=== PATIENT | male | born 1950 | race Caucasian/White ===

== ENCOUNTER 2016-12-08 08:49 | Emergency (ER) | payer OTHER ==
--- NOTE | 2016-12-08 10:35 | ED ORDER SUMMARY ---
..... Patient: LAUREEN OSEI [facility]Sheet [facility] VisitID: [id number] [address] [place] [address] 66y, M Registration Date/Time: 12/08/2016 ORDER SHEET Weight: 72.5 kg (stated) Allergies: No Known Drug Allergy GENERAL ORDERS: Culture, Strep Screen Urgent (09:46 12/08/2016 Nano HARVEY) (9:47 [facility]) MEDICATION ORDERS: IV FLUIDS: ORDER SHEET NOTES: [Electronically signed by Taiwo Roe R.N. (10:48 12/08/2016)] [Electronically signed by Filomena Gandhi MD (21:15 12/18/2016)] [Electronically locked/signed by Taiwo Roe R.N. (10:48 12/08/2016)]
--- NOTE | 2016-12-08 10:35 | ED CLINICAL REPORT ---
Clinical Report - Physicians/Mid Levels [facility] [address] [place] [address] 12/08/2016 8:51 Patient: LAUREEN OSEI Time Seen: 09:22. Arrived- By private vehicle. Historian- patient. HISTORY OF PRESENT ILLNESS Chief Complaint: SORE THROAT. This started yesterday and is still present. Pain described as moderate. The patient has had a sore throat. No mouth sores, nasal discharge or congestion or ear pain. No swollen jaw or face, jaw pain or facial pain. He has had moderate toothache involving a single tooth (right lower molar) (for several weeks). Similar symptoms previously: Recent medical care: ( Pt has a dental appt scheduled.). Not recently seen/assessed. REVIEW OF SYSTEMS No fever, eye discomfort, cough, difficulty breathing or chest pain. No nausea, diarrhea, abdominal pain, difficulty with urination or headache. No fainting episodes, joint pain, skin rash, enlarged lymph nodes or vomiting. All systems otherwise negative, except as recorded above. PAST HISTORY Problems: Dental Caries. Abscess. Hypertension. Immunizations. Additional Surgeries: no known surgeries. Medications: None. Allergies: No Known Drug Allergy. SOCIAL HISTORY Smoker- current status unknown. No alcohol use or drug use. ADDITIONAL NOTES The nursing notes have been reviewed. PHYSICAL EXAM Vital Signs: 12/08/2016 08:57 BP: 158/73. HR: 94. RR: 18. O2 saturation: 97%. Temp: 98.3 F. Have been reviewed. Appearance: Alert. No acute distress. Head: Normal external inspection. Eyes: Pupils equal, round and reactive to light. Conjunctivae and eyelids normal. ENT: Severe, localized dental decay (lower right incisors, lower left incisors, lower right canine, lower left canine, lower right premolars, lower left premolars). Nose normal. Mild generalized pharyngeal erythema. No right tonsillar exudate, right tonsillar swelling, left tonsillar exudate or left tonsillar swelling. Lips normal. Gums normal. No trismus present. Uvula midline. Neck: Normal inspection. Trachea midline. No adenopathy. CVS: Normal heart rate and rhythm. Heart sounds normal. Pulses normal. Respiratory: No respiratory distress. Breath sounds normal. Abdomen: Soft and nontender. Skin: Normal skin color. No rash. Normal skin turgor. Extremities: Extremities exhibit normal ROM. Extremities nontender. Neuro: Oriented X 3. No motor deficit. No sensory deficit. LABS, X-RAYS, AND EKG Laboratory Tests: Culture, Strep Screen: (CAMRYN: 12/08/2016 09:40) ( MsgRcvd 12/08/2016 10:09) Final results Test Result Flag Units (Reference) RAPID STREP SCREEN - THROAT DATE: 12/08/16 NEGATIVE SCREEN: RAPID STREP SCREEN NEGATIVE; CONFIRMATION TO FOLLOW . Pulse Oximetry: 12/08/2016 08:57 O2 saturation: 97%. (FIO2 - room air). Interpretation: normal. PROGRESS AND PROCEDURES Course of Care: D/w pt that he should keep his dental appt. Pharyngitis is likely viral. Patient counseled in person regarding the patient's stable condition, test results, diagnosis and need for follow-up. Concerns were addressed. Old medical records reviewed. Disposition: Discharged. Condition: stable. CLINICAL IMPRESSION Acute viral pharyngitis Dental caries (extensive decay) Dermatitis, nonspecific, lower extremities. INSTRUCTIONS Drink plenty of fluids. (Your strep test is negative.). Warnings: GENERAL WARNINGS: Return or contact your physician immediately if your condition worsens or changes unexpectedly, if not improving as expected, or if other problems arise. Follow-up: Follow up with a dentist. Call for the next available appointment. Follow up with a specialist [phone] Dermatology/[place]. Call for the next available appointment. Reason for referral: Chronic dermatitis on legs. Understanding of the discharge instructions verbalized by patient. (Electronically signed by Filomena Gandhi MD 12/18/2016 21:15) Tracey LAUREEN Medeiros VisitID: [id number] Date: 12/08/2016 12/10/2016 18:00 call placed to [phone] and message left; re: throat culture; needs Amoxicillin 500 mg 1 po tid, x10 days per Milka Gonzalez ENP (Electronically signed by Madeleine Rico R.N. - 12/10/2016 18:00) 12/11/2016 9:22 Left message at [phone], left message, told to call back ER to call in RX to pharmacy of choice. Will have admin send certified letter as this is pts second call. (Electronically signed by Scott Leon R.N. - 12/11/2016 9:22) 12/11/2016 17:31 Certified letter [id number] sent to patient (Electronically signed by Deneen Leon R.N. - 12/11/2016 17:31) 12/14/2016 14:26 Pt calling and states he received certified letter. This RN educated pt on positive group A Strep culture and need for amoxicillin. Pt states he wants medications filled at [facility] pharmacy. Pt states he does not have a phone number to provide that he can be reached at but will fill meds at [facility] pharmacy. [facility] contacted, pharmacy closed saturdays, Spoke with Dr Salena Rolon who wrote an electronic script for amoxicillin and sent it to [facility] pharmacy. (Electronically signed by Yanira Delarosa R.N. - 12/14/2016 14:26)
--- NOTE | 2016-12-08 10:35 | ED NURSING NOTES ---
Clinical Report - Nurses [facility] [address] [place] [address] 12/08/2016 8:51 Patient: LAUREEN OSEI TRIAGE Triage time 08:57 Dec 08 2016. Acuity: LEVEL 4. Chief Complaint: SORE THROAT. JULIA COMA SCORE: [place] Coma Scale: 15- eyes open spontaneously (4); best verbal response- oriented x 4 (5); best motor response- obeys commands (6). --09:00 Taiwo Roe R.N. 08:57 12/08/16. BP: 158/73. HR: 94. RR: 18. O2 saturation: 97%. Temp: 98.3 F. Pain level now 4/10. --09:00 Taiwo Roe R.N. Weight: 72.5 kg stated. Height/Length: 69 inches Per Patient. BMI: 23.6. --08:57 Taiwo Roe R.N. Medications None. --08:58 Taiwo Roe R.N. Allergies No Known Drug Allergy. --08:58 Taiwo Roe R.N. History Arrived by private vehicle. Historian: patient. This started yesterday. He has no dental appointment scheduled. He has had a toothache. PAST MEDICAL HX: Dental caries. Abscess. Immunizations: status is unknown. SOCIAL HX: Current every day light tobacco smoker (cigarette)- less than 1/2 a pack per day. No alcohol use or drug use. SELF HARM ASSESSMENT: A self harm assessment was performed. The patient answered "no" to the question "Have you recently felt down, depressed, or hopeless?" and "Do you have thoughts of harming or killing yourself?". FALL RISK ASSESSMENT: Fall risk assessment completed. No fall risk identified. NUTRITIONAL RISK ASSESSMENT: The nutritional risk assessment revealed no deficiencies. FUNCTIONAL ASSESSMENT: Functional assessment: no impairments noted. LEARNING NEEDS ASSESSMENT: The learning needs assessment revealed no barriers. ABUSE ASSESSMENT: Abuse assessment: (yes) The patient was asked "Do you feel safe in your home?". SKIN INTEGRITY ASSESSMENT: Skin integrity risk assessment completed. No skin integrity risk identified. --09:00 Taiwo Roe R.N. PROBLEMS: Hypertension. Immunizations. --08:58 Taiwo Roe R.N. ADDITIONAL SURGERIES: no known surgeries. Interventions ID band on patient. --09:00 Taiwo Roe R.N. PHYSICAL ASSESSMENT Ambulatory to room. GENERAL / NEURO / PSYCH: Alert. Oriented X 4. Appears in no acute distress. HEENT: Runny nose. ( sore throat states hurts to swallow). Dental decay. Mucous membranes are pink. RESPIRATORY: Respirations not labored. CVS: Capillary refill less than 2 seconds. SKIN: Skin is warm and dry. Normal skin turgor. --09:01 Tiawo Roe R.N. NURSING PROGRESS NOTES The initial plan of care for this patient includes an assessment with efforts to address patient positioning and appropriate ambient lighting. Pulse oximeter and NIBP monitor placed on patient. Reassurance given. Call light placed in reach. Side rails up x 1. Bed placed in lowest position. Brakes of bed on. --09:01 Taiwo Roe R.N. DISPOSITION / DISCHARGE Departure time: 10:42 Dec 08 2016. Condition at departure: improved. No learning barriers present. Discharge instructions provided and reviewed with the patient. Reviewed warnings. Reviewed medication(s). Treatments reviewed. Reviewed referrals. Patient verbalized understanding. Written instructions provided in Surinamese. The patient was discharged home. He left the Emergency Department ambulatory and via private vehicle. Patient driving. --10:47 Taiwo Roe R.N. 10:46 12/08/16. BP: 148/78. HR: 88. RR: 18. O2 saturation: 98%. Temp: 98.3 F. Pain level now 07/12. --10:47 Taiwo Roe R.N. Locked/Released at 12/08/2016 10:48 by Taiwo Roe R.N.
--- NOTE | 2016-12-08 10:35 | ED CLINICAL REPORT ---
Clinical Report - Physicians/Mid Levels [facility] [address] [place] [address] 12/08/2016 8:51 Patient: LAUREEN OSEI Time Seen: 09:22. Arrived- By private vehicle. Historian- patient. HISTORY OF PRESENT ILLNESS Chief Complaint: SORE THROAT. This started yesterday and is still present. Pain described as moderate. The patient has had a sore throat. No mouth sores, nasal discharge or congestion or ear pain. No swollen jaw or face, jaw pain or facial pain. He has had moderate toothache involving a single tooth (right lower molar) (for several weeks). Similar symptoms previously: Recent medical care: ( Pt has a dental appt scheduled.). Not recently seen/assessed. REVIEW OF SYSTEMS No fever, eye discomfort, cough, difficulty breathing or chest pain. No nausea, diarrhea, abdominal pain, difficulty with urination or headache. No fainting episodes, joint pain, skin rash, enlarged lymph nodes or vomiting. All systems otherwise negative, except as recorded above. PAST HISTORY Problems: Dental Caries. Abscess. Hypertension. Immunizations. Additional Surgeries: no known surgeries. Medications: None. Allergies: No Known Drug Allergy. SOCIAL HISTORY Smoker- current status unknown. No alcohol use or drug use. ADDITIONAL NOTES The nursing notes have been reviewed. PHYSICAL EXAM Vital Signs: 12/08/2016 08:57 BP: 158/73. HR: 94. RR: 18. O2 saturation: 97%. Temp: 98.3 F. Have been reviewed. Appearance: Alert. No acute distress. Head: Normal external inspection. Eyes: Pupils equal, round and reactive to light. Conjunctivae and eyelids normal. ENT: Severe, localized dental decay (lower right incisors, lower left incisors, lower right canine, lower left canine, lower right premolars, lower left premolars). Nose normal. Mild generalized pharyngeal erythema. No right tonsillar exudate, right tonsillar swelling, left tonsillar exudate or left tonsillar swelling. Lips normal. Gums normal. No trismus present. Uvula midline. Neck: Normal inspection. Trachea midline. No adenopathy. CVS: Normal heart rate and rhythm. Heart sounds normal. Pulses normal. Respiratory: No respiratory distress. Breath sounds normal. Abdomen: Soft and nontender. Skin: Normal skin color. No rash. Normal skin turgor. Extremities: Extremities exhibit normal ROM. Extremities nontender. Neuro: Oriented X 3. No motor deficit. No sensory deficit. LABS, X-RAYS, AND EKG Laboratory Tests: Culture, Strep Screen: (CAMRYN: 12/08/2016 09:40) ( MsgRcvd 12/08/2016 10:09) Final results Test Result Flag Units (Reference) RAPID STREP SCREEN - THROAT DATE: 12/08/16 NEGATIVE SCREEN: RAPID STREP SCREEN NEGATIVE; CONFIRMATION TO FOLLOW . Pulse Oximetry: 12/08/2016 08:57 O2 saturation: 97%. (FIO2 - room air). Interpretation: normal. PROGRESS AND PROCEDURES Course of Care: D/w pt that he should keep his dental appt. Pharyngitis is likely viral. Patient counseled in person regarding the patient's stable condition, test results, diagnosis and need for follow-up. Concerns were addressed. Old medical records reviewed. Disposition: Discharged. Condition: stable. CLINICAL IMPRESSION Acute viral pharyngitis Dental caries (extensive decay) Dermatitis, nonspecific, lower extremities. INSTRUCTIONS Drink plenty of fluids. (Your strep test is negative.). Warnings: GENERAL WARNINGS: Return or contact your physician immediately if your condition worsens or changes unexpectedly, if not improving as expected, or if other problems arise. Follow-up: Follow up with a dentist. Call for the next available appointment. Follow up with a specialist [phone] Dermatology/[place]. Call for the next available appointment. Reason for referral: Chronic dermatitis on legs. Understanding of the discharge instructions verbalized by patient. (Electronically signed by Filomena Gandhi MD 12/18/2016 21:15) Tracey LAUREEN Medeiros VisitID: [id number] Date: 12/08/2016 12/10/2016 18:00 call placed to [phone] and message left; re: throat culture; needs Amoxicillin 500 mg 1 po tid, x10 days per Milka Gonzalez ENP (Electronically signed by Madeleine Rico R.N. - 12/10/2016 18:00) 12/11/2016 9:22 Left message at [phone], left message, told to call back ER to call in RX to pharmacy of choice. Will have admin send certified letter as this is pts second call. (Electronically signed by Scott Leon R.N. - 12/11/2016 9:22) 12/11/2016 17:31 Certified letter [id number] sent to patient (Electronically signed by Deneen Leon R.N. - 12/11/2016 17:31) 12/14/2016 14:26 Pt calling and states he received certified letter. This RN educated pt on positive group A Strep culture and need for amoxicillin. Pt states he wants medications filled at [facility] pharmacy. Pt states he does not have a phone number to provide that he can be reached at but will fill meds at [facility] pharmacy. [facility] contacted, pharmacy closed saturdays, Spoke with Dr Salena Rolon who wrote an electronic script for amoxicillin and sent it to [facility] pharmacy. (Electronically signed by Yanira Delarosa R.N. - 12/14/2016 14:26)
--- NOTE | 2016-12-08 10:35 | ED ORDER SUMMARY ---
..... Patient: LAUREEN OSEI OrderSheet VisitID: [id number] [address] [place] [address] 66y, M Registration Date/Time: 12/08/2016 ORDER SHEET Weight: 72.5 kg (stated) Allergies: No Known Drug Allergy GENERAL ORDERS: Culture, Strep Screen Urgent (09:46 12/08/2016 Nano HARVEY) (9:47 [facility]) MEDICATION ORDERS: IV FLUIDS: ORDER SHEET NOTES: [Electronically signed by Taiwo Roe R.N. (10:48 12/08/2016)] [Electronically signed by Filomena Gandhi MD (21:15 12/18/2016)] [Electronically locked/signed by Taiwo Roe R.N. (10:48 12/08/2016)]
--- NOTE | 2016-12-18 21:15 | ED DISCHARGE INSTRUCTIONS ---
Patient: LAUREEN OSEI General Instructions [facility] VisitID: [id number] [place] [address] 66y, M Registration Date/Time: 12/08/2016 Acute viral pharyngitis Dental caries (extensive decay) Dermatitis, nonspecific, lower extremities. INSTRUCTIONS Drink plenty of fluids. (Your strep test is negative.). Warnings: GENERAL WARNINGS: Return or contact your physician immediately if your condition worsens or changes unexpectedly, if not improving as expected, or if other problems arise. Follow-up: Follow up with a dentist. Call for the next available appointment. Follow up with a specialist [phone] Dermatology/[place]. Call for the next available appointment. Reason for referral: Chronic dermatitis on legs. Understanding of the discharge instructions verbalized by patient. ADDITIONAL INFORMATION Viral Pharyngitis (Sore Throat) Your throat pain is due to an infection called "Viral Pharyngitis", commonly known as "Sore Throat". This is a contagious illness. It is spread through the air by coughing, kissing or by touching others after touching your mouth or nose. Symptoms include throat pain worse with swallowing, aching all over, headache and fever. Unlike strep throat, which is a bacterial infection, this illness does not require treatment with an antibiotic. Home Care: If your symptoms are severe, rest at home for the first 2-3 days. Children: Use acetaminophen (Tylenol) for fever, fussiness or discomfort. In infants over six months of age, you may use ibuprofen (Children's Motrin) instead of Tylenol. [NOTE: If your child has chronic liver or kidney disease or ever had a stomach ulcer or GI bleeding, talk with your maurice doctor before using these medicines.] (Aspirin should never be used in anyone under 18 years of age who is ill with a fever. It may cause severe liver damage.) Adults: You may use acetaminophen (Tylenol) or ibuprofen (Motrin, Advil) to control pain or fever, unless another medicine was prescribed. [NOTE: If you have chronic liver or kidney disease or ever had a stomach ulcer or GI bleeding, talk with your doctor before using these medicines.] Throat lozenges or sprays (Chloraseptic and others) will reduce pain. Gargling with warm salt water will also reduce throat pain. Dissolve 1/2 teaspoon of salt in 1 glass of warm water. This is especially useful just before meals. Follow Up with your doctor or as directed by our staff if you are not improving over the next week. Get Prompt Medical Attention if any of the following occur: Fever over 100.5F (38.0C) oral, or over 101.5F (38.6C) rectal for more than three days New or worsening ear pain, sinus pain or headache Painful lumps in the back of your neck Unable to swallow liquids or open your mouth wide due to throat pain Trouble breathing or noisy breathing Muffled voice New rash Dental Cavity A dental cavity is a pit or crater in the enamel surface of the tooth. This exposes the sensitive inner layer of the tooth and causes pain. If untreated, the cavity will get bigger and may cause an infection or abscess in the root of the tooth. An infection in the tooth is a much more serious problem and may require a root canal or removal of the entire tooth. The tooth pain may be made worse by drinking hot or cold fluids. It may spread from the tooth to the ear or jaw on the same side. Home Care: Avoid hot and cold foods, and liquids since your tooth may be sensitive to temperature changes. If your tooth is chipped or cracked, or if there is a large open cavity, apply OIL OF CLOVES (available [id number] in drug stores) directly to the tooth to reduce pain. Some pharmacies carry an mpde-lhb-obquqqz "toothache kit." This contains oil of cloves and a paste, which can be applied over the exposed tooth to decrease sensitivity. An ice pack on your jaw over the sore area may help to reduce pain. You may use acetaminophen (Tylenol) or ibuprofen (Motrin, Advil) to control pain, unless another pain medicine was prescribed. [ NOTE: If you have liver disease or ever had a stomach ulcer, talk with your doctor before using these medicines.] If you have signs of an infection, an antibiotic will be given. Take it as directed. Follow-Up with your dentist as directed. Although your pain may go away with the treatment given, only a dentist can fully evaluate and treat this problem to prevent further tooth damage. Get Prompt Medical Attention if any of the following occur: Redness or swelling of the face Pain worsens or spreads to the neck Fever over 100.5 F (38C) Unusual drowsiness; headache or stiff neck; weakness or fainting Pus drains from the tooth or gum Difficulty swallowing or breathing You have been given the following additional information: Pharyngitis, Viral Dental Cavity (Electronically signed by Filomena Gandhi MD 12/18/2016 21:15)
--- NOTE | 2016-12-18 21:15 | ED MAR SUMMARY ---
..... Medication Administration Record [facility] [address] [place], [place] [id number] Patient: LAUREEN OSEI Visit ID: [id number] 66y, M Weight: 72.5 kg Height/Length: 69 in BMI: 23.6 ALLERGIES: No Known Drug Allergy
--- NOTE | 2016-12-18 21:15 | ED MAR SUMMARY ---
..... Medication Administration Record [facility] [address] [place] [place], [place] [id number] Patient: LAUREEN OSEI Visit ID: [id number] 66y, M Weight: 72.5 kg Height/Length: 69 in BMI: 23.6 ALLERGIES: No Known Drug Allergy
--- NOTE | 2016-12-18 21:15 | ED MED RECONCILIATION SUMMARY ---
Patient: LAUREEN OSEI Medication Reconciliation Report [facility] VisitID: [id number] [address] [place] [address] 66y, M Registration Date/Time: 12/08/2016 Weight: 72.5 kg Height/Length: 69 in. BMI: 23.6 ALLERGIES: No Known Drug Allergy The patient's Home Medications are listed below: NONE. The source(s) of the original Home Medication information: Not obtained. The following Medications were given to the patient in the Emergency Department: None. The following Medications were prescribed to the patient: None.
--- NOTE | 2016-12-18 21:15 | ED MED RECONCILIATION SUMMARY ---
Patient: LAUREEN OSEI Medication Reconciliation Report [facility] VisitID: [id number] [address] [place] [address] 66y, M Registration Date/Time: 12/08/2016 Weight: 72.5 kg Height/Length: 69 in. BMI: 23.6 ALLERGIES: No Known Drug Allergy The patient's Home Medications are listed below: NONE. The source(s) of the original Home Medication information: Not obtained. The following Medications were given to the patient in the Emergency Department: None. The following Medications were prescribed to the patient: None.
--- NOTE | 2016-12-18 21:15 | ED DISCHARGE INSTRUCTIONS ---
Patient: LAUREEN OSEI General Instructions [facility] VisitID: [id number] [place] [address] 66y, M Registration Date/Time: 12/08/2016 Acute viral pharyngitis Dental caries (extensive decay) Dermatitis, nonspecific, lower extremities. INSTRUCTIONS Drink plenty of fluids. (Your strep test is negative.). Warnings: GENERAL WARNINGS: Return or contact your physician immediately if your condition worsens or changes unexpectedly, if not improving as expected, or if other problems arise. Follow-up: Follow up with a dentist. Call for the next available appointment. Follow up with a specialist [phone] Dermatology/Jack. Call for the next available appointment. Reason for referral: Chronic dermatitis on legs. Understanding of the discharge instructions verbalized by patient. ADDITIONAL INFORMATION Viral Pharyngitis (Sore Throat) Your throat pain is due to an infection called "Viral Pharyngitis", commonly known as "Sore Throat". This is a contagious illness. It is spread through the air by coughing, kissing or by touching others after touching your mouth or nose. Symptoms include throat pain worse with swallowing, aching all over, headache and fever. Unlike strep throat, which is a bacterial infection, this illness does not require treatment with an antibiotic. Home Care: If your symptoms are severe, rest at home for the first 2-3 days. Children: Use acetaminophen (Tylenol) for fever, fussiness or discomfort. In infants over six months of age, you may use ibuprofen (Children's Motrin) instead of Tylenol. [NOTE: If your child has chronic liver or kidney disease or ever had a stomach ulcer or GI bleeding, talk with your maurice doctor before using these medicines.] (Aspirin should never be used in anyone under 18 years of age who is ill with a fever. It may cause severe liver damage.) Adults: You may use acetaminophen (Tylenol) or ibuprofen (Motrin, Advil) to control pain or fever, unless another medicine was prescribed. [NOTE: If you have chronic liver or kidney disease or ever had a stomach ulcer or GI bleeding, talk with your doctor before using these medicines.] Throat lozenges or sprays (Chloraseptic and others) will reduce pain. Gargling with warm salt water will also reduce throat pain. Dissolve 1/2 teaspoon of salt in 1 glass of warm water. This is especially useful just before meals. Follow Up with your doctor or as directed by our staff if you are not improving over the next week. Get Prompt Medical Attention if any of the following occur: Fever over 100.5F (38.0C) oral, or over 101.5F (38.6C) rectal for more than three days New or worsening ear pain, sinus pain or headache Painful lumps in the back of your neck Unable to swallow liquids or open your mouth wide due to throat pain Trouble breathing or noisy breathing Muffled voice New rash Dental Cavity A dental cavity is a pit or crater in the enamel surface of the tooth. This exposes the sensitive inner layer of the tooth and causes pain. If untreated, the cavity will get bigger and may cause an infection or abscess in the root of the tooth. An infection in the tooth is a much more serious problem and may require a root canal or removal of the entire tooth. The tooth pain may be made worse by drinking hot or cold fluids. It may spread from the tooth to the ear or jaw on the same side. Home Care: Avoid hot and cold foods, and liquids since your tooth may be sensitive to temperature changes. If your tooth is chipped or cracked, or if there is a large open cavity, apply OIL OF CLOVES (available [id number] in drug stores) directly to the tooth to reduce pain. Some pharmacies carry an [id number] "toothache kit." This contains oil of cloves and a paste, which can be applied over the exposed tooth to decrease sensitivity. An ice pack on your jaw over the sore area may help to reduce pain. You may use acetaminophen (Tylenol) or ibuprofen (Motrin, Advil) to control pain, unless another pain medicine was prescribed. [ NOTE: If you have liver disease or ever had a stomach ulcer, talk with your doctor before using these medicines.] If you have signs of an infection, an antibiotic will be given. Take it as directed. Follow-Up with your dentist as directed. Although your pain may go away with the treatment given, only a dentist can fully evaluate and treat this problem to prevent further tooth damage. Get Prompt Medical Attention if any of the following occur: Redness or swelling of the face Pain worsens or spreads to the neck Fever over 100.5 F (38C) Unusual drowsiness; headache or stiff neck; weakness or fainting Pus drains from the tooth or gum Difficulty swallowing or breathing You have been given the following additional information: Pharyngitis, Viral Dental Cavity (Electronically signed by Filomena Gandhi MD 12/18/2016 21:15)
== END 2016-12-08 10:42 | disposition home or self-care (01) ==
LOC: ED SRH 08:49
DX: J02.9 Acute pharyngitis, unspecified (principal); K02.9 Dental caries, unspecified; L30.9 Dermatitis, unspecified; I10 Essential (primary) hypertension
CPT/HCPCS: 90154; 90159; 90627

== ENCOUNTER 2016-12-11 22:56 | Emergency (ER) | payer OTHER ==
--- NOTE | 2016-12-12 01:40 | ED NURSING NOTES ---
Clinical Report - Nurses [facility] [address] [place] [address] 12/11/2016 22:59 [id number] TRI[facility] Triage time 23:44. Chief Complaint: SWELLING (swelling, redness, drainage and leg pain in right lower extremity.). Alert. NUSRAT COMA SCORE: [place] Coma Scale: 15- eyes open spontaneously (4); best verbal response- oriented x 4 (5); best motor response- obeys commands (6). --23:51 Dread Quan R.N. 23:44 12/11/16. BP: 177/95. HR: 97. RR: 16. O2 saturation: 98%. Temp: 98.6 F. --:51 Dread Quan R.N. Weight: 70.3 kg stated. Height/Length: 69 inches Per Patient. BMI: 22.9. --: Joan Bowie R.N. Medications None. --: Joan Bowie R.N. Allergies No Known Drug Allergy. --: Joan Bowie R.N. History Arrived by private vehicle. Historian: patient. Onset. (6 days ago). Treatment INSPECTOR WEIGHTS AND MEASURES: (soaked with dish soap and water). SOCIAL HX: Light tobacco smoker- less than 1/2 a pack per day. FALL RISK ASSESSMENT: Fall risk assessment completed. No fall risk identified. NUTRITIONAL RISK ASSESSMENT: The nutritional risk assessment revealed no deficiencies. FUNCTIONAL ASSESSMENT: Functional assessment: no impairments noted. LEARNING NEEDS ASSESSMENT: The learning needs assessment revealed no barriers. SKIN INTEGRITY ASSESSMENT: Skin breakdown noted on the right calf. --23:51 Dread Quan R.N. PAST MEDICAL HX: Immunizations: has received tetanus within 10 years. --:30 Joan Bowie R.N. PROBLEMS: Abscess. Hypertension. --: Joan Bowie R.N. ADDITIONAL SURGERIES: no known surgeries. Interventions ID band on patient. To waiting room. --23:51 Dread Quan R.N. PHYSICAL ASSESSMENT Ambulatory to room. ( pt presents with red, open wounds on backs of both lower legs). GENERAL / NEURO / PSYCH: Alert. Oriented X 4. Appears in no acute distress. HEENT: Mucous membranes are pink. RESPIRATORY: Respirations not labored. CVS: Capillary refill less than 2 seconds. SKIN: Skin is warm and dry. --01:31 Joan Bowie R.N. NURSING PROGRESS NOTES Two patient identifiers checked. Call light placed in reach. Side rails up x 1. Bed placed in lowest position. Brakes of bed on. --01:31 Joan Bowie R.N. Patient ready for evaluation- chart flagged. --01:31 Joan Bowie R.N. 01:31 12/12/16. BP: 177/87. HR: 95. RR: 15 (regular and unlabored). O2 saturation: 99% on room air. Temp: 97.8 F (oral). Driscoll-Lucio pain scale: 07/12. --01:33 Joan Bowie R.N. 01:38 12/12/2016 Clindamycin PO Capsules 300 mg given. Allergies verified and confirmed 5 rights. --01:42 Joan Bowie R.N. 01:40 12/12/2016 TDAP IM 0.5 mL given. (Lot#: [id number], expiration date: 11/05/2018, Ingredient Scaler: sanofi pasteur). Given in the right deltoid. Allergies verified and confirmed 5 rights. Vaccine information statement provided to the patient. --01:42 Joan Bowie R.N. DISPOSITION / DISCHARGE 01:46 12/12/16. BP: deferred. HR: deferred. RR: 15 (regular and unlabored). O2 saturation: deferred. Temp: deferred. Driscoll-Lucio pain scale: 07/12. --01:47 Joan Bowie R.N. Condition at departure: stable. No learning barriers present. Discharge instructions provided and reviewed with the patient. Reviewed medication(s) side effects, precautions, dosing and course information. Prescription(s) given to the patient. Patient verbalized understanding. Written instructions provided in Tristanian. The patient was discharged home. He left the Emergency Department ambulatory and via private vehicle. --01:47 Joan Bowie R.N. Locked/Released at 12/12/2016 1:47 by Joan Bowie R.N.
--- NOTE | 2016-12-12 01:40 | ED NURSING NOTES ---
Clinical Report - Nurses [facility] [address] [place] [address] 12/11/2016 22:59 [id number] Triage time 23:44. Chief Complaint: SWELLING (swelling, redness, drainage and leg pain in right lower extremity.). Alert. NUSRAT COMA SCORE: [place] Coma Scale: 15- eyes open spontaneously (4); best verbal response- oriented x 4 (5); best motor response- obeys commands (6). --23:51 Dread Quan R.N. 23:44 12/11/16. BP: 177/95. HR: 97. RR: 16. O2 saturation: 98%. Temp: 98.6 F. --:51 Dread Quan R.N. Weight: 70.3 kg stated. Height/Length: 69 inches Per Patient. BMI: 22.9. --: Joan Bowie R.N. Medications None. --: Joan Bowie R.N. Allergies No Known Drug Allergy. --: Joan Bowie R.N. History Arrived by private vehicle. Historian: patient. Onset. (6 days ago). Treatment INVENTORY SPECIALIST: (soaked with dish soap and water). SOCIAL HX: Light tobacco smoker- less than 1/2 a pack per day. FALL RISK ASSESSMENT: Fall risk assessment completed. No fall risk identified. NUTRITIONAL RISK ASSESSMENT: The nutritional risk assessment revealed no deficiencies. FUNCTIONAL ASSESSMENT: Functional assessment: no impairments noted. LEARNING NEEDS ASSESSMENT: The learning needs assessment revealed no barriers. SKIN INTEGRITY ASSESSMENT: Skin breakdown noted on the right calf. --23:51 Dread Quan R.N. PAST MEDICAL HX: Immunizations: has received tetanus within 10 years. --:30 Joan Bowie R.N. PROBLEMS: Abscess. Hypertension. --: Joan Bowie R.N. ADDITIONAL SURGERIES: no known surgeries. Interventions ID band on patient. To waiting room. --23:51 Dread Quan R.N. PHYSICAL ASSESSMENT Ambulatory to room. ( pt presents with red, open wounds on backs of both lower legs). GENERAL / NEURO / PSYCH: Alert. Oriented X 4. Appears in no acute distress. HEENT: Mucous membranes are pink. RESPIRATORY: Respirations not labored. CVS: Capillary refill less than 2 seconds. SKIN: Skin is warm and dry. --01:31 Joan Bowie R.N. NURSING PROGRESS NOTES Two patient identifiers checked. Call light placed in reach. Side rails up x 1. Bed placed in lowest position. Brakes of bed on. --01:31 Joan Bowie R.N. Patient ready for evaluation- chart flagged. --01:31 Joan Bowie R.N. 01:31 12/12/16. BP: 177/87. HR: 95. RR: 15 (regular and unlabored). O2 saturation: 99% on room air. Temp: 97.8 F (oral). Driscoll-Lucio pain scale: 07/12. --01:33 Joan Bowie R.N. 01:38 12/12/2016 Clindamycin PO Capsules 300 mg given. Allergies verified and confirmed 5 rights. --01:42 Joan Bowie R.N. 01:40 12/12/2016 TDAP IM 0.5 mL given. (Lot#: [id number], expiration date: 11/05/2018, Synthetic Department Supervisor: sanofi pasteur). Given in the right deltoid. Allergies verified and confirmed 5 rights. Vaccine information statement provided to the patient. --01:42 Joan Bowie R.N. DISPOSITION / DISCHARGE 01:46 12/12/16. BP: deferred. HR: deferred. RR: 15 (regular and unlabored). O2 saturation: deferred. Temp: deferred. Driscoll-Lucio pain scale: 07/12. --01:47 Joan Bowie R.N. Condition at departure: stable. No learning barriers present. Discharge instructions provided and reviewed with the patient. Reviewed medication(s) side effects, precautions, dosing and course information. Prescription(s) given to the patient. Patient verbalized understanding. Written instructions provided in Ethiopian. The patient was discharged home. He left the Emergency Department ambulatory and via private vehicle. --01:47 Joan Bowie R.N. Locked/Released at 12/12/2016 1:47 by Joan Bowie R.N.
--- NOTE | 2016-12-12 01:40 | ED CLINICAL REPORT ---
Clinical Report - Physicians/Mid Levels [facility] [address] [place] [address] 12/11/2016 22:59 Patient: LAUEREN OSEI Time Seen: 00:20; initial patient contact. Arrived- By private vehicle. Historian- patient. HISTORY OF PRESENT ILLNESS Chief Complaint: SKIN RASH. This started about 1 week ago and is still present. It is described as itchy. Not painful. It has been located on the right leg and ankle. No cause has been identified. No recent medication or insect bite. Was not recently exposed to poison jose. Similar symptoms previously: None. Recent medical care: Not recently seen/assessed. REVIEW OF SYSTEMS No fever or chills. He has had skin rash. All systems otherwise negative, except as recorded above. PAST HISTORY Abscess. Hypertension. Last tetanus immunization was more than 5 years ago. Surgeries: No history of previous surgery. SOCIAL HISTORY Current every day smoker. ADDITIONAL NOTES The nursing notes have been reviewed. PHYSICAL EXAM Vital Signs: 12/11/2016 23:44 BP: 177/95. HR: 97. RR: 16. O2 saturation: 98%. Temp: 98.6 F. Have been reviewed. Hypertensive. Heart rate normal. Respiratory rate normal. Temperature normal. Oxygen saturation normal. Appearance: Alert. Oriented X3. No acute distress. Skin: Skin warm and dry. Small area of cellulitis with erythema to right leg and right ankle. Neuro: Oriented X 3. PROGRESS AND PROCEDURES Disposition: Discharged home in good condition. Condition: good. CLINICAL IMPRESSION Cellulitis of the right lower leg and right ankle. Essential hypertension. INSTRUCTIONS Do not smoke. Seek medical help to quit smoking. Prescription Medications: Clindamycin 300 mg: take 1 capsule orally every 6 hours for 7 days Bactroban 2% ointment: apply small amount to affected area three times daily until symptoms better. Dispense twenty-two (22) grams. No refills. Substitution is permissible. Follow-up: Screening today revealed the patient's blood pressure to be in the hypertensive range. The patient should follow up with a primary care provider for blood pressure management. Follow-up with: [facility], Family Practice, , [address] [place] [address], [address], [place] [phone] Follow up in about two days. Call for an appointment. (Electronically signed by Rusty Haro Dr. 12/12/2016 1:45)
--- NOTE | 2016-12-12 01:40 | ED CLINICAL REPORT ---
Clinical Report - Physicians/Mid Levels [facility] [address] [place] [address] 12/11/2016 22:59 Patient: LAUREEN OSEI Time Seen: 00:20; initial patient contact. Arrived- By private vehicle. Historian- patient. HISTORY OF PRESENT ILLNESS Chief Complaint: SKIN RASH. This started about 1 week ago and is still present. It is described as itchy. Not painful. It has been located on the right leg and ankle. No cause has been identified. No recent medication or insect bite. Was not recently exposed to poison jose. Similar symptoms previously: None. Recent medical care: Not recently seen/assessed. REVIEW OF SYSTEMS No fever or chills. He has had skin rash. All systems otherwise negative, except as recorded above. PAST HISTORY Abscess. Hypertension. Last tetanus immunization was more than 5 years ago. Surgeries: No history of previous surgery. SOCIAL HISTORY Current every day smoker. ADDITIONAL NOTES The nursing notes have been reviewed. PHYSICAL EXAM Vital Signs: 12/11/2016 23:44 BP: 177/95. HR: 97. RR: 16. O2 saturation: 98%. Temp: 98.6 F. Have been reviewed. Hypertensive. Heart rate normal. Respiratory rate normal. Temperature normal. Oxygen saturation normal. Appearance: Alert. Oriented X3. No acute distress. Skin: Skin warm and dry. Small area of cellulitis with erythema to right leg and right ankle. Neuro: Oriented X 3. PROGRESS AND PROCEDURES Disposition: Discharged home in good condition. Condition: good. CLINICAL IMPRESSION Cellulitis of the right lower leg and right ankle. Essential hypertension. INSTRUCTIONS Do not smoke. Seek medical help to quit smoking. Prescription Medications: Clindamycin 300 mg: take 1 capsule orally every 6 hours for 7 days Bactroban 2% ointment: apply small amount to affected area three times daily until symptoms better. Dispense twenty-two (22) grams. No refills. Substitution is permissible. Follow-up: Screening today revealed the patient's blood pressure to be in the hypertensive range. The patient should follow up with a primary care provider for blood pressure management. Follow-up with: [facility], Family Practice, , [address] [place] [address], [address], [place] [phone] Follow up in about two days. Call for an appointment. (Electronically signed by Rusty Haro Dr. 12/12/2016 1:45)
--- NOTE | 2016-12-12 01:40 | ED ORDER SUMMARY ---
..... Patient: LAUREEN OSEI OrderSheet [facility] VisitID: [id number] [place] [address] 66y, M Registration Date/Time: 12/11/2016 ORDER SHEET Weight: 70.3 kg (stated) Allergies: No Known Drug Allergy GENERAL ORDERS: MEDICATION ORDERS: Tdap IM 0.5 mL (NOW, per protocol) (:12/12/2016 Thuan Crowe) (Ack 1:36 RCollier R.N.) (1:42 RCollier R.N.) Clindamycin PO 300 mg (NOW) (:12/12/2016 Thuan Crowe) (Ack 1:36 RCollier R.N.) (1:42 RCollier R.N.) IV FLUIDS: ORDER SHEET NOTES: [Electronically signed by Rusty Haro Dr. (01:45 12/12/2016)] [Electronically signed by Joan Bowie R.N. (01:47 12/12/2016)] [Electronically locked/signed by Joan Bowie R.N. (01:47 12/12/2016)]
--- NOTE | 2016-12-12 01:40 | ED ORDER SUMMARY ---
..... Patient: LAUREEN OSEI OrderSheet [facility] VisitID: [id number] [place] [address] 66y, M Registration Date/Time: 12/11/2016 ORDER SHEET Weight: 70.3 kg (stated) Allergies: No Known Drug Allergy GENERAL ORDERS: MEDICATION ORDERS: Tdap IM 0.5 mL (NOW, per protocol) (:12/12/2016 Thuan Crowe) (Ack 1:36 RCollier R.N.) (1:42 RCollier R.N.) Clindamycin PO 300 mg (NOW) (:12/12/2016 Thuan Crowe) (Ack 1:36 RCollier R.N.) (1:42 RCollier R.N.) IV FLUIDS: ORDER SHEET NOTES: [Electronically signed by Rusty Haro Dr. (01:45 12/12/2016)] [Electronically signed by Joan Bowie R.N. (01:47 12/12/2016)] [Electronically locked/signed by Joan Bowie R.N. (01:47 12/12/2016)]
--- NOTE | 2016-12-12 01:47 | ED MAR SUMMARY ---
..... Medication Administration Record [facility] [address] [place] [address] Patient: LAUREEN OSEI Visit ID: [id number] 66y, M Weight: 70.3 kg Height/Length: 69 in BMI: 22.9 ALLERGIES: No Known Drug Allergy Given 01:38 12/12/2016 Joan Bowie, RMariaaNMariaa Medication Administered: CLINDAMYCIN [PO], Dose: 300 mg Capsules PO. Medication Ordered: Clindamycin PO 300 mg (NOW). Given 01:40 12/12/2016 Joan Bowie, R.N. Medication Administered: TDAP [IM], Dose: 0.5 mL IM. Medication Ordered: Tdap IM 0.5 mL (NOW, per protocol).
--- NOTE | 2016-12-12 01:47 | ED DISCHARGE INSTRUCTIONS ---
Patient: LAUREEN OSEI General Instructions [facility] VisitID: [id number] [place] [id number] 66y, M Registration Date/Time: 12/11/2016 Cellulitis of the right lower leg and right ankle. Essential hypertension. INSTRUCTIONS Do not smoke. Seek medical help to quit smoking. Prescription Medications: Clindamycin 300 mg: take 1 capsule orally every 6 hours for 7 days Bactroban 2% ointment: apply small amount to affected area three times daily until symptoms better. Dispense twenty-two (22) grams. No refills. Substitution is permissible. Follow-up: Screening today revealed the patient's blood pressure to be in the hypertensive range. The patient should follow up with a primary care provider for blood pressure management. Follow-up with: [facility], , [address] [place] [address], [address], [place] [id number] Follow up in about two days. Call for an appointment. ADDITIONAL INFORMATION Cellulitis You have an infection of the skin known as cellulitis. This usually starts with a scrape, cut, insect bite, blister or other opening in the skin which becomes infected. This is a serious condition. It must be watched closely to be sure the infection is not spreading. With antibiotic treatment, the size of the red area will gradually shrink in size until the skin returns to normal. This will take 7-10 days. The red area should never increase in size once the antibiotic medicine has been started. Occasionally, an infection will be resistant to one antibiotic and another one will have to be used. Home Care: 1) Limit the use of the affected part, since excess movement can cause the infection to spread. 2) If the infection is on your leg, walk as little as possible during the first few days of the treatment. Keep your leg elevated while sitting. This will reduce swelling. 3) Take all of the antibiotic medicine exactly as directed until it is gone. Be careful not to miss any doses, especially during the first seven days. Follow Up with your doctor or this facility as directed. Check the infected area daily for the warning signs listed below. Get Prompt Medical Attention if any of the following occur: -- Spreading area of redness -- Increasing swelling or pain -- Appearance of pus or drainage -- Fever over 100.4 F (38.0 C) oral, or over 101.4 F (38.6 C) rectal, after two days on antibiotics High Blood Pressure -- To Be Confirmed [No Tx] Your blood pressure was higher today than normal. Sometimes anxiety or pain can cause a temporary rise in blood pressure that later returns to normal. If your blood pressure is high on one measurement, this does not mean that you have hypertension (a chronic illness). However, you must have your blood pressure measured again within the next few days to find out if its still high. A normal blood pressure is 120/80 or less. The first (top) number is the "systolic" pressure. The second (bottom) number is the "diastolic" pressure. Hypertension exists when either the top number is 140 or higher, OR the bottom number is 90 or higher on repeated measurements. Blood pressure in the range of 120-140 (systolic) or 80-89 (diastolic) is considered "pre-hypertension". This means your are at risk for getting hypertension. You should have regular blood pressure checks to be sure your blood pressure is not rising. Home Care: Measure your blood pressure on 3 different days and write down the results. This can be done at your doctor's office or this facility. Some pharmacies and grocery stores offer automated blood pressure machines for your use. Follow Up: If your blood pressure is "high" (over 120/80) on 2 out of 3 days, you will need to follow up with your doctor for further evaluation and treatment. DO NOT PUT THIS OFF! Untreated high blood pressure increases the risk for heart attack, also known as acute myocardial infarction, or AMI, and stroke. It is a treatable condition. Get Prompt Medical Attention if any of the following occur: Chest pain or shortness of breath Severe headache Throbbing or rushing sound in the ears Nosebleed Sudden severe abdominal pain Extreme drowsiness, confusion or fainting Dizziness or vertigo (dizziness with spinning sensation) Weakness of an arm or leg or one side of the face Difficulty with speech or vision How To Quit Smoking Smoking is one of the hardest habits to break. About half of all those who have ever smoked have been able to quit, and most of those (about 70%) who still smoke want to quit. Here are some of the best ways to stop smoking. Keep Trying: It takes most smokers about 8 tries before they are finally able to fully quit. So, the more often you try and fail, the better your chance of quitting the next time! So, don't give up! Go Cold [place]: Most ex-smokers quit cold turkey. Trying to cut back gradually doesn't seem to work as well, perhaps because it continues the smoking habit. Also, it is possible to fool yourself by inhaling more while smoking fewer cigarettes. This results in the same amount of nicotine in your body! Get Support: Support programs can make an important difference, especially for the heavy smoker. These groups offer lectures, methods to change your behavior and peer support. Call the free national Quitline for more information. 772-NGXZ-TKC (995-787-2389). Low-cost or free programs are offered by many hospitals, local chapters of the [employer] (814-564-9743) and the [employer] (021-411-1768). Support at home is important too. Non-smokers can help by offering praise and encouragement. If the smoker fails to quit, encourage them to try again! Mxme-Imm-Raltfca Medicines: For those who can't quit on their own, Nicotine Replacement Therapy (NRT) may make quitting much easier. Certain aids such as the nicotine patch, gum and lozenge are available without a prescription. However, it is best to use these under the guidance of your doctor. The skin patch provides a steady supply of nicotine to the body. Nicotine gum and lozenge gives temporary bursts of low levels of nicotine. Both methods take the edge off the craving for cigarettes. WARNING: If you feel symptoms of nicotine overdose, such as nausea, vomiting, dizziness, weakness, or fast heartbeat, stop using these and see your doctor. Prescription Medicines: After evaluating your smoking patterns and prior attempts at quitting, your doctor may offer a prescription medicine such as bupropion (Zyban, Wellbutrin), varenicline (Chantix, Champix), a niocotine inhaler or nasal spray. Each has its unique advantage and side effects which your doctor can review with you. Health Benefits Of Quitting: The benefits of quitting start right away and keep improving the longer you go without smokin minutes: blood pressure and pulse return to normal 8 hours: oxygen levels return to normal 2 days: ability to smell and taste begins to improve as damaged nerves start to regrow 2-3 weeks: circulation and lung function improves 1-9 months: decreased cough, congestion and shortness of breath; less tired 1 year: risk of heart attack decreases by half 5 years: risk of lung cancer decreases by half; risk of stroke becomes the same as a non-smoker For information about how to quit smoking, visit the following links: National Cancer [place] , Clearing the Air, Quit Smoking Today - an online booklet. http://www.smokefree.gov/pubs/clearing_the_air.pdf Smokefree.gov http://smokefree.gov/ QuitNet http://www.quitnet.com/ Clindamycin Hydrochloride Oral capsule What is this medicine? CLINDAMYCIN (KLIN da MARCIA sin) is a lincosamide antibiotic. It is used to treat certain kinds of bacterial infections. It will not work for colds, flu, or other viral infections. How should I use this medicine? Take this medicine by mouth with a full glass of water. Follow the directions on the prescription label. You can take this medicine with food or on an empty stomach. If the medicine upsets your stomach, take it with food. Take your medicine at regular intervals. Do not take your medicine more often than directed. Take all of your medicine as directed even if you think your are better. Do not skip doses or stop your medicine early. Talk to your mover helper regarding the use of this medicine in children. Special care may be needed. What side effects may I notice from receiving this medicine? Side effects that you should report to your doctor or health small animal caretaker as soon as possible: allergic reactions like skin rash, itching or hives, swelling of the face, lips, or tongue dark urine pain on swallowing redness, blistering, peeling or loosening of the skin, including inside the mouth unusual bleeding or bruising unusually weak or tired yellowing of eyes or skin Side effects that usually do not require medical attention (report to your doctor or health small animal caretaker if they continue or are bothersome): diarrhea itching in the rectal or genital area joint pain nausea, vomiting stomach pain What may interact with this medicine? chloramphenicol erythromycin kaolin products What if I miss a dose? If you miss a dose, take it as soon as you can. If it is almost time for your next dose, take only that dose. Do not take double or extra doses. Where should I keep my medicine? Keep out of the reach of children. Store at room temperature between 20 and 25 degrees C (68 and 77 degrees F). Throw away any unused medicine after the expiration date. What should I tell my health care provider before I take this medicine? They need to know if you have any of these conditions: kidney disease liver disease stomach problems like colitis an unusual or allergic reaction to clindamycin, lincomycin, or other medicines, foods, dyes like tartrazine or preservatives or trying to get breast-feeding What should I watch for while using this medicine? Tell your doctor or healthcare professional if your symptoms do not start to get better or if they get worse. Do not treat diarrhea with over the counter products. Contact your doctor if you have diarrhea that lasts more than 2 days or if it is severe and watery. Mupirocin Topical ointment What is this medicine? MUPIROCIN (myoo PEER oh sin) is an antibiotic. It is used on the skin to treat skin infections. How should I use this medicine? This medicine is for external use only. Follow the directions on the prescription label. Wash your hands before and after use. Before applying, wash the affected area with mild soap and water and pat dry. Apply a small amount to the affected area and rub gently. You can cover the area with a gauze dressing. Do not get this medicine in your eyes. If you do, rinse out with plenty of cool tap water. Do not use your medicine more often than directed. Finish the full course of medicine prescribed by your doctor or health small animal caretaker even if you think your condition is better. Do not use over large areas of burnt skin. Talk to your mover helper regarding the use of this medicine in children. Special care may be needed. What side effects may I notice from receiving this medicine? Side effects that you should report to your doctor or health small animal caretaker as soon as possible: skin rash, redness, continued swelling, burning, itching, stinging, or pain Side effects that usually do not require medical attention (report to your doctor or health small animal caretaker if they continue or are bothersome): dry skin, itching What may interact with this medicine? Interactions are not expected. Do not use any other skin products on the affected area without telling your doctor or health small animal caretaker. What if I miss a dose? If you miss a dose, take it as soon as you can. If it is almost time for your next dose, take only that dose. Do not take double or extra doses. Where should I keep my medicine? Keep out of the reach of children. Store at room temperature between 20 and 25 degrees C (68 and 77 degrees F). Throw away any unused medicine after the expiration date. What should I tell my health care provider before I take this medicine? They need to know if you have any of these conditions: an unusual or allergic reaction to mupirocin, polyethylene glycol (PEG), or other topical antibiotic medicine or trying to get breast-feeding What should I watch for while using this medicine? Tell your doctor or health small animal caretaker if your skin condition does not begin to improve within 3 to 5 days. You have been given the following additional information: Cellulitis Hypertension, To Be Confirmed Smoking Cessation Clindamycin Hydrochloride Oral capsule Mupirocin Topical ointment (Electronically signed by Rusty Haro Dr. 12/12/2016 1:45)
--- NOTE | 2016-12-12 01:47 | ED DISCHARGE INSTRUCTIONS ---
Patient: LAUREEN OSEI General Instructions Located Within [facility] VisitID: [id number] [place] [id number] 66y, M Registration Date/Time: 12/11/2016 Cellulitis of the right lower leg and right ankle. Essential hypertension. INSTRUCTIONS Do not smoke. Seek medical help to quit smoking. Prescription Medications: Clindamycin 300 mg: take 1 capsule orally every 6 hours for 7 days Bactroban 2% ointment: apply small amount to affected area three times daily until symptoms better. Dispense twenty-two (22) grams. No refills. Substitution is permissible. Follow-up: Screening today revealed the patient's blood pressure to be in the hypertensive range. The patient should follow up with a primary care provider for blood pressure management. Follow-up with: [facility], , [address] [place] [address], [address], [place] [address] Follow up in about two days. Call for an appointment. ADDITIONAL INFORMATION Cellulitis You have an infection of the skin known as cellulitis. This usually starts with a scrape, cut, insect bite, blister or other opening in the skin which becomes infected. This is a serious condition. It must be watched closely to be sure the infection is not spreading. With antibiotic treatment, the size of the red area will gradually shrink in size until the skin returns to normal. This will take 7-10 days. The red area should never increase in size once the antibiotic medicine has been started. Occasionally, an infection will be resistant to one antibiotic and another one will have to be used. Home Care: 1) Limit the use of the affected part, since excess movement can cause the infection to spread. 2) If the infection is on your leg, walk as little as possible during the first few days of the treatment. Keep your leg elevated while sitting. This will reduce swelling. 3) Take all of the antibiotic medicine exactly as directed until it is gone. Be careful not to miss any doses, especially during the first seven days. Follow Up with your doctor or this facility as directed. Check the infected area daily for the warning signs listed below. Get Prompt Medical Attention if any of the following occur: -- Spreading area of redness -- Increasing swelling or pain -- Appearance of pus or drainage -- Fever over 100.4 F (38.0 C) oral, or over 101.4 F (38.6 C) rectal, after two days on antibiotics High Blood Pressure -- To Be Confirmed [No Tx] Your blood pressure was higher today than normal. Sometimes anxiety or pain can cause a temporary rise in blood pressure that later returns to normal. If your blood pressure is high on one measurement, this does not mean that you have hypertension (a chronic illness). However, you must have your blood pressure measured again within the next few days to find out if its still high. A normal blood pressure is 120/80 or less. The first (top) number is the "systolic" pressure. The second (bottom) number is the "diastolic" pressure. Hypertension exists when either the top number is 140 or higher, OR the bottom number is 90 or higher on repeated measurements. Blood pressure in the range of 120-140 (systolic) or 80-89 (diastolic) is considered "pre-hypertension". This means your are at risk for getting hypertension. You should have regular blood pressure checks to be sure your blood pressure is not rising. Home Care: Measure your blood pressure on 3 different days and write down the results. This can be done at your doctor's office or this facility. Some pharmacies and grocery stores offer automated blood pressure machines for your use. Follow Up: If your blood pressure is "high" (over 120/80) on 2 out of 3 days, you will need to follow up with your doctor for further evaluation and treatment. DO NOT PUT THIS OFF! Untreated high blood pressure increases the risk for heart attack, also known as acute myocardial infarction, or AMI, and stroke. It is a treatable condition. Get Prompt Medical Attention if any of the following occur: Chest pain or shortness of breath Severe headache Throbbing or rushing sound in the ears Nosebleed Sudden severe abdominal pain Extreme drowsiness, confusion or fainting Dizziness or vertigo (dizziness with spinning sensation) Weakness of an arm or leg or one side of the face Difficulty with speech or vision How To Quit Smoking Smoking is one of the hardest habits to break. About half of all those who have ever smoked have been able to quit, and most of those (about 70%) who still smoke want to quit. Here are some of the best ways to stop smoking. Keep Trying: It takes most smokers about 8 tries before they are finally able to fully quit. So, the more often you try and fail, the better your chance of quitting the next time! So, don't give up! Go Cold [place]: Most ex-smokers quit cold turkey. Trying to cut back gradually doesn't seem to work as well, perhaps because it continues the smoking habit. Also, it is possible to fool yourself by inhaling more while smoking fewer cigarettes. This results in the same amount of nicotine in your body! Get Support: Support programs can make an important difference, especially for the heavy smoker. These groups offer lectures, methods to change your behavior and peer support. Call the free national Quitline for more information. 237-EMQE-BEF (426-213-1023). Low-cost or free programs are offered by many hospitals, local chapters of the [place] [employer] (521-066-4805) and the [place] [employer] (462-261-1723). Support at home is important too. Non-smokers can help by offering praise and encouragement. If the smoker fails to quit, encourage them to try again! Gvtb-Ddk-Javjdle Medicines: For those who can't quit on their own, Nicotine Replacement Therapy (NRT) may make quitting much easier. Certain aids such as the nicotine patch, gum and lozenge are available without a prescription. However, it is best to use these under the guidance of your doctor. The skin patch provides a steady supply of nicotine to the body. Nicotine gum and lozenge gives temporary bursts of low levels of nicotine. Both methods take the edge off the craving for cigarettes. WARNING: If you feel symptoms of nicotine overdose, such as nausea, vomiting, dizziness, weakness, or fast heartbeat, stop using these and see your doctor. Prescription Medicines: After evaluating your smoking patterns and prior attempts at quitting, your doctor may offer a prescription medicine such as bupropion (Zyban, Wellbutrin), varenicline (Chantix, Champix), a niocotine inhaler or nasal spray. Each has its unique advantage and side effects which your doctor can review with you. Health Benefits Of Quitting: The benefits of quitting start right away and keep improving the longer you go without smokin minutes: blood pressure and pulse return to normal 8 hours: oxygen levels return to normal 2 days: ability to smell and taste begins to improve as damaged nerves start to regrow 2-3 weeks: circulation and lung function improves 1-9 months: decreased cough, congestion and shortness of breath; less tired 1 year: risk of heart attack decreases by half 5 years: risk of lung cancer decreases by half; risk of stroke becomes the same as a non-smoker For information about how to quit smoking, visit the following links: National Cancer [place] , Clearing the Air, Quit Smoking Today - an online booklet. http://www.smokefree.gov/pubs/clearing_the_air.pdf Smokefree.gov http://smokefree.gov/ QuitNet http://www.quitnet.com/ Clindamycin Hydrochloride Oral capsule What is this medicine? CLINDAMYCIN (KLIN da MARCIA sin) is a lincosamide antibiotic. It is used to treat certain kinds of bacterial infections. It will not work for colds, flu, or other viral infections. How should I use this medicine? Take this medicine by mouth with a full glass of water. Follow the directions on the prescription label. You can take this medicine with food or on an empty stomach. If the medicine upsets your stomach, take it with food. Take your medicine at regular intervals. Do not take your medicine more often than directed. Take all of your medicine as directed even if you think your are better. Do not skip doses or stop your medicine early. Talk to your marketing performance analyst regarding the use of this medicine in children. Special care may be needed. What side effects may I notice from receiving this medicine? Side effects that you should report to your doctor or health rn care transition as soon as possible: allergic reactions like skin rash, itching or hives, swelling of the face, lips, or tongue dark urine pain on swallowing redness, blistering, peeling or loosening of the skin, including inside the mouth unusual bleeding or bruising unusually weak or tired yellowing of eyes or skin Side effects that usually do not require medical attention (report to your doctor or health rn care transition if they continue or are bothersome): diarrhea itching in the rectal or genital area joint pain nausea, vomiting stomach pain What may interact with this medicine? chloramphenicol erythromycin kaolin products What if I miss a dose? If you miss a dose, take it as soon as you can. If it is almost time for your next dose, take only that dose. Do not take double or extra doses. Where should I keep my medicine? Keep out of the reach of children. Store at room temperature between 20 and 25 degrees C (68 and 77 degrees F). Throw away any unused medicine after the expiration date. What should I tell my health care provider before I take this medicine? They need to know if you have any of these conditions: kidney disease liver disease stomach problems like colitis an unusual or allergic reaction to clindamycin, lincomycin, or other medicines, foods, dyes like tartrazine or preservatives or trying to get breast-feeding What should I watch for while using this medicine? Tell your doctor or healthcare professional if your symptoms do not start to get better or if they get worse. Do not treat diarrhea with over the counter products. Contact your doctor if you have diarrhea that lasts more than 2 days or if it is severe and watery. Mupirocin Topical ointment What is this medicine? MUPIROCIN (myoo PEER oh sin) is an antibiotic. It is used on the skin to treat skin infections. How should I use this medicine? This medicine is for external use only. Follow the directions on the prescription label. Wash your hands before and after use. Before applying, wash the affected area with mild soap and water and pat dry. Apply a small amount to the affected area and rub gently. You can cover the area with a gauze dressing. Do not get this medicine in your eyes. If you do, rinse out with plenty of cool tap water. Do not use your medicine more often than directed. Finish the full course of medicine prescribed by your doctor or health rn care transition even if you think your condition is better. Do not use over large areas of burnt skin. Talk to your marketing performance analyst regarding the use of this medicine in children. Special care may be needed. What side effects may I notice from receiving this medicine? Side effects that you should report to your doctor or health rn care transition as soon as possible: skin rash, redness, continued swelling, burning, itching, stinging, or pain Side effects that usually do not require medical attention (report to your doctor or health rn care transition if they continue or are bothersome): dry skin, itching What may interact with this medicine? Interactions are not expected. Do not use any other skin products on the affected area without telling your doctor or health rn care transition. What if I miss a dose? If you miss a dose, take it as soon as you can. If it is almost time for your next dose, take only that dose. Do not take double or extra doses. Where should I keep my medicine? Keep out of the reach of children. Store at room temperature between 20 and 25 degrees C (68 and 77 degrees F). Throw away any unused medicine after the expiration date. What should I tell my health care provider before I take this medicine? They need to know if you have any of these conditions: an unusual or allergic reaction to mupirocin, polyethylene glycol (PEG), or other topical antibiotic medicine or trying to get breast-feeding What should I watch for while using this medicine? Tell your doctor or health rn care transition if your skin condition does not begin to improve within 3 to 5 days. You have been given the following additional information: Cellulitis Hypertension, To Be Confirmed Smoking Cessation Clindamycin Hydrochloride Oral capsule Mupirocin Topical ointment (Electronically signed by Rusty Haro Dr. 12/12/2016 1:45)
--- NOTE | 2016-12-12 01:47 | ED MED RECONCILIATION SUMMARY ---
Patient: LAUREEN OSEI Medication Reconciliation Report [facility] VisitID: [id number] [place] [address] 66y, M Registration Date/Time: 12/11/2016 Weight: 70.3 kg Height/Length: 69 in. BMI: 22.9 ALLERGIES: No Known Drug Allergy The patient's Home Medications are listed below: NONE. The source(s) of the original Home Medication information: Not obtained. The following Medications were given to the patient in the Emergency Department: TDAP [IM] IM 0.5 mL, administered: 12/12/2016 1:40:00 AM Clindamycin [PO] PO 300 mg, administered: 12/12/2016 1:38:00 AM The following Medications were prescribed to the patient: Clindamycin 300 mg: take 1 capsule orally every 6 hours for 7 days -- Rusty Haro Dr. Bactroban 2% ointment: apply small amount to affected area three times daily until symptoms better. Dispense twenty-two (22) grams. No refills. Substitution is permissible. -- Rusty Haro Dr.
--- NOTE | 2016-12-12 01:47 | ED MED RECONCILIATION SUMMARY ---
Patient: LAUREEN OSEI Medication Reconciliation Report [facility] VisitID: [id number] [place] [address] 66y, M Registration Date/Time: 12/11/2016 Weight: 70.3 kg Height/Length: 69 in. BMI: 22.9 ALLERGIES: No Known Drug Allergy The patient's Home Medications are listed below: NONE. The source(s) of the original Home Medication information: Not obtained. The following Medications were given to the patient in the Emergency Department: TDAP [IM] IM 0.5 mL, administered: 12/12/2016 1:40:00 AM Clindamycin [PO] PO 300 mg, administered: 12/12/2016 1:38:00 AM The following Medications were prescribed to the patient: Clindamycin 300 mg: take 1 capsule orally every 6 hours for 7 days -- Rusty Haro Dr. Bactroban 2% ointment: apply small amount to affected area three times daily until symptoms better. Dispense twenty-two (22) grams. No refills. Substitution is permissible. -- Rusty Haro Dr.
--- NOTE | 2016-12-12 01:47 | ED MAR SUMMARY ---
..... Medication Administration Record [facility] [address] [place] [address] Patient: LAUREEN OSEI Visit ID: [id number] 66y, M Weight: 70.3 kg Height/Length: 69 in BMI: 22.9 ALLERGIES: No Known Drug Allergy Given 01:38 12/12/2016 Joan Bowie, RMariaaNMariaa Medication Administered: CLINDAMYCIN [PO], Dose: 300 mg Capsules PO. Medication Ordered: Clindamycin PO 300 mg (NOW). Given 01:40 12/12/2016 Joan Bowie, R.N. Medication Administered: TDAP [IM], Dose: 0.5 mL IM. Medication Ordered: Tdap IM 0.5 mL (NOW, per protocol).
== END 2016-12-12 01:45 | disposition home or self-care (01) ==
LOC: ED SRH 22:56
DX: L03.115 Cellulitis of right lower limb (principal); I10 Essential (primary) hypertension; Z23 Encounter for immunization; F17.210 Nicotine dependence, cigarettes, uncomplicated

== ENCOUNTER 2016-12-13 18:02 | Outpatient (CLI) | payer OTHER ==
--- NOTE | 2016-12-13 21:22 | DIAGNOSTIC IMAGING REPORT ---
PROCEDURE: US VENOUS - BILATERAL EXT INDICATION: BILAT LE EDEMA TECHNIQUE: Duplex sonography of the deep venous system in both lower extremities was performed. Compression and augmentation techniques were used. COMPARISON: None. FINDINGS: Each interrogated segment of deep vein from the common femoral vein into the calf veins demonstrates normal compressibility, augmentation and/or color Doppler flow without filling defect. No evidence of significant soft-tissue edema, soft-tissue mass or cyst. IMPRESSION: 1. No deep venous thrombosis in either lower extremity.
== END 2016-12-13 23:00 ==
LOC: US SRH 18:02
DX: R60.0 Localized edema (principal)